=== PATIENT | female | born 1990 | race Caucasian/White ===

== ENCOUNTER 2017-05-02 21:43 | Emergency (ER) | payer SELFPAY ==
[2017-05-02] MEDS ORDERED: ONE DAILY MULT1 EAC2 PO (23:21)
== END 2017-05-02 23:50 ==
LOC: EDMED 21:43
PROC: 0H96XZZ Drainage of Back Skin, External Approach (ICD-10-PCS; principal; 2017-05-02)
DX: L02.212 Cutaneous abscess of back [any part, except buttock and flank] (principal)